=== PATIENT | male | born 1985 | race American Indian/Alaskan Native ===

== ENCOUNTER 2018-06-06 21:51 | Emergency (ER) | payer SELFPAY ==
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
[2018-06-07 03:20] VITALS: BP 121/74
== END 2018-06-07 03:15 | disposition home or self-care (01) ==
LOC: ED 21:51
DX: M79.641 Pain in right hand (principal); M79.642 Pain in left hand; F17.200 Nicotine dependence, unspecified, uncomplicated; Z88.6 Allergy status to analgesic agent
CPT/HCPCS: 99282